=== PATIENT | male | born 1990 | race Caucasian/White ===

== ENCOUNTER 2020-07-08 13:49 | Inpatient (IN) | payer OTHER ==
[2020-07-08] MEDS ORDERED: LORazepam 2 MG/ML INJ IV PRN ×3 (14:08→16:25)
[2020-07-08] MEDS ORDERED: THIAMINE 100 MG/ML 2 ML VIAL IM STA (14:08)
[2020-07-08] MEDS ORDERED: LORazepam 2 MG/ML INJ IV STA (14:09)
--- NOTE | 2020-07-08 14:11 | ED ---
General Adult HPI - General Chief complaint: Chest Pain Stated complaint: Chest pain Time Seen by Provider: 07/08/20 13:54 Source: patient, EMS Mode of arrival: EMS Limitations: no limitations - History of Present Illness Initial comments: Dictation was produced using [employer] dictation software. please excuse any grammatical, word or spelling errors. This patient was cared for during a federal and state declared state of emergency secondary to Covid 19 Chief Complaint: 29-year-old male with squeezing chest pain and withdrawals History of Present Illness: 29-year-old male is brought in by EMS for chest pain. Patient was brought to us from [facility]. Patient states that he was having pressure like chest pain. Patient denies any diaphoresis. States that it does not radiate to shoulders or jaw. Does not have any history of cardiac disease. Patient drinks a fifth of liquor daily for the last month. He has never had withdrawals in the past. Patient does feel very tremulous and anxious. EMS gave patient nitroglycerin and aspirin. Allegedly provided patient with no benefit. The ROS documented in this emergency department record has been reviewed and confirmed by me. Those systems with pertinent positive or negative responses have been documented in the HPI. All other systems are other negative and/or noncontributory. PHYSICAL EXAM: General Impression: Alert and oriented x3, tremulous, anxious, mildly diaphoretic HEENT: Normocephalic atraumatic, extra-ocular movements intact, pupils equal and reactive to light bilaterally, mucous membranes moist. Cardiovascular: Heart regular rate and rhythm Chest: Able to complete full sentences, no retractions, no tachypnea Abdomen: abdomen soft, non-tender, non-distended, no organomegaly Musculoskeletal: Pulses present and equal in all extremities, no peripheral edema Motor: no focal deficits noted Neurological: CN II-XII grossly intact, no focal motor or sensory deficits noted Skin: Intact with no visualized rashes Psych: Anxious ED course: 29-year-old male presents with atypical chest pain and EtOH withdrawals. Vital signs upon arrival shows her to 122 cumbersome vital signs within acceptable limits. EKG does not show any signs of ischemia or infarction. Return evaluation obtained. Mild leukocytosis of 12.5 likely secondary to stress. Coag panel is negative. Metabolic panel shows potassium 5.2 likely slight hemolysis. Rest metabolic panel is negative. Lipase 461, [employer] is 83, troponin is negative. Chest x-ray shows small left pleural effusion. Patient reevaluated at bedside after Ativan with persistent severe withdrawal symptoms. Patient be admitted. Case discussed with [facility]. They will accept patient for inpatient admission. EKG interpretation: Ventricular rate 119, sinus tachycardia, MS interval 152, QRS 82, QTc 433. No MS prolongation, no QTC prolongation, no ST or T-wave changes noted. Overall, this EKG is unremarkable - Related Data Home Medications Medication Instructions Recorded Confirmed No Known Home Medications 07/08/20 07/08/20 Allergies Allergy/AdvReac Type Severity Reaction Status Date / Time No Known Allergies Allergy Verified 07/08/20 14:33 Review of Systems ROS Statement: Those systems with pertinent positive or pertinent negative responses have been documented in the HPI. ROS Other: All systems not noted in ROS Statement are negative. Past Medical History Past Medical History: No Reported History Additional Past Medical History / Comment(s): ETOH abuse History of Any Multi-Drug Resistant Organisms: None Reported Past Surgical History: No Surgical Hx Reported Smoking Status: Current every day smoker Past Alcohol Use History: Abuse, Daily Past Drug Use History: IV Drug Use, Marijuana - Past Family History Mother Family Medical History: Congestive Heart Failure (CHF) General Exam Limitations: no limitations Course Vital Signs 07/08/20 07/08/20 07/08/20 13:54 14:05 16:00 Temperature 98.0 F Pulse Rate 123 H 131 H Pulse Rate [ 123 H [employer] ] Respiratory 18 18 Rate Blood Pressure 151/94 151/139 O2 Sat by Pulse 98 98 Oximetry 07/08/20 07/08/20 17:05 18:05 Temperature Pulse Rate 106 H 113 H Pulse Rate [ [employer] ] Respiratory 18 18 Rate Blood Pressure 161/108 149/98 O2 Sat by Pulse 98 95 Oximetry Medical Decision Making - Lab Data Result diagrams: 07/09/20 09:08 07/09/20 09:08 Lab Results 07/08/20 07/08/20 07/08/20 Range/Units 13:55 13:55 13:55 WBC 12.5 H (3.8-10.6) k/uL RBC 5.16 (4.30-5.90) m/uL Hgb 17.5 (13.0-17.5) gm/dL Hct 49.9 (39.0-53.0) % MCV 96.6 (80.0-100.0) fL MCH 33.8 (25.0-35.0) pg MCHC 35.0 (31.0-37.0) g/dL RDW 13.9 (11.5-15.5) % Plt Count 109 L (150-450) k/uL MPV 7.7 Neutrophils % 80 % Lymphocytes % 14 % Monocytes % 5 % Eosinophils % 0 % Basophils % 0 % Neutrophils # 10.0 H (1.3-7.7) k/uL Lymphocytes # 1.7 (1.0-4.8) k/uL Monocytes # 0.6 (0-1.0) k/uL Eosinophils # 0.0 (0-0.7) k/uL Basophils # 0.1 (0-0.2) k/uL PT 10.1 (9.0-12.0) sec INR 0.9 (<1.2) APTT 23.8 (22.0-30.0) sec Sodium 139 (137-145) mmol/L Potassium 5.2 H (3.5-5.1) mmol/L Chloride 106 (98-107) mmol/L Carbon Dioxide 23 (22-30) mmol/L Anion Gap 10 mmol/L BUN 14 (9-20) mg/dL Creatinine 0.67 (0.66-1.25) mg/dL Est GFR (CKD-EPI)AfAm >90 (>60 ml/min/1.73 sqM) Est GFR (CKD-EPI)NonAf >90 (>60 ml/min/1.73 sqM) Glucose 112 H (74-99) mg/dL Calcium 9.3 (8.4-10.2) mg/dL Troponin I (0.000-0.034) ng/mL Lipase 461 H (23-300) U/L Serum Alcohol 83 mg/dL 07/08/20 Range/Units 13:55 WBC (3.8-10.6) k/uL RBC (4.30-5.90) m/uL Hgb (13.0-17.5) gm/dL Hct (39.0-53.0) % MCV (80.0-100.0) fL MCH (25.0-35.0) pg MCHC (31.0-37.0) g/dL RDW (11.5-15.5) % Plt Count (150-450) k/uL MPV Neutrophils % % Lymphocytes % % Monocytes % % Eosinophils % % Basophils % % Neutrophils # (1.3-7.7) k/uL Lymphocytes # (1.0-4.8) k/uL Monocytes # (0-1.0) k/uL Eosinophils # (0-0.7) k/uL Basophils # (0-0.2) k/uL PT (9.0-12.0) sec INR (<1.2) APTT (22.0-30.0) sec Sodium (137-145) mmol/L Potassium (3.5-5.1) mmol/L Chloride (98-107) mmol/L Carbon Dioxide (22-30) mmol/L Anion Gap mmol/L BUN (9-20) mg/dL Creatinine (0.66-1.25) mg/dL Est GFR (CKD-EPI)AfAm (>60 ml/min/1.73 sqM) Est GFR (CKD-EPI)NonAf (>60 ml/min/1.73 sqM) Glucose (74-99) mg/dL Calcium (8.4-10.2) mg/dL Troponin I <0.012 (0.000-0.034) ng/mL Lipase (23-300) U/L Serum Alcohol mg/dL Disposition Clinical Impression: Alcohol abuse with withdrawal Disposition: ADMITTED IP TO THIS HOSP Decision Time: 14:52
[2020-07-08 14:38] LABS: African American GFR (CKD) >90 (>60 ml/min/1.73 sqM); Anion Gap 10 mmol/L; Blood Urea Nitrogen 14 mg/dL (9-20); Calcium 9.3 mg/dL (8.4-10.2); Carbon Dioxide 23 mmol/L (22-30); Chloride 106 mmol/L (98-107); Glucose 112 mg/dL (74-99); Lipase 461 U/L (23-300); Non-African American GFR(CKD) >90 (>60 ml/min/1.73 sqM); Potassium 5.2 mmol/L (3.5-5.1); Sodium 139 mmol/L (137-145)
[2020-07-08] MEDS ORDERED: SODIUM CHLORIDE 0.9% 1,000 ML IV STA (14:43)
--- NOTE | 2020-07-08 14:44 | XR ---
EXAMINATION TYPE: XR chest 1V portable DATE OF EXAM: 07/08/2020 COMPARISON: NONE HISTORY: Left-sided chest pain and shortness of breath. TECHNIQUE: Single AP portable frontal upright view of the chest is obtained. FINDINGS: There is small left pleural effusion. No suspicious focal airspace opacity or pneumothorax seen bilaterally. The cardiac silhouette size is within normal limits. The osseous structures are intact. IMPRESSION: Small left pleural effusion.
[2020-07-08 14:45] LABS: Alcohol 83 mg/dL
[2020-07-08 14:48] LABS: Basophils # (A) 0.1 k/uL (0-0.2); Basophils % (A) 0 %; Eosinophils % (A) 0 %; HCT 49.9 % (39.0-53.0); HGB 17.5 gm/dL (13.0-17.5); Lymphocytes # (A) 1.7 k/uL (1.0-4.8); Lymphocytes % (A) 14 %; MCH 33.8 pg (25.0-35.0); MCV 96.6 fL (80.0-100.0); Mean Platelet Volume 7.7; Monocytes # (A) 0.6 k/uL (0-1.0); Monocytes % (A) 5 %; Neutrophils % (A) 80 %; Platelet Count 109 k/uL (150-450); RBC 5.16 m/uL (4.30-5.90); RDW 13.9 % (11.5-15.5); WBC 12.5 k/uL (3.8-10.6)
[2020-07-08] MEDS ORDERED: NALOXONE 0.4 MG/ML 1 ML VIAL IV PRN ×2 (14:53→16:18)
[2020-07-08] MEDS ORDERED: LORazepam 1 MG TAB PO STA (15:08)
[2020-07-08 15:09] LABS: INR 0.9 (<1.2); Partial Thromboplastin Time 23.8 sec (22.0-30.0); Prothrombin Time 10.1 sec (9.0-12.0)
--- NOTE | 2020-07-08 16:37 | P.HPIM ---
<Ac Fan - Last Filed: 07/08/20 16:44> History of Present Illness H&P Date: 07/08/20 Chief Complaint: chest pain and alcohol withdrawal History of presenting illness Patient is a 29-year-old male with a past medical history of polysubstance abuse with IVDA and EtOH use/abuse. He presented to [facility] via EMS from [facility] with the chief complaint of chest pain and alcohol withdrawal. Pt states that he has been drinking daily since November 2019 and that for the past 4-5 weeks he has been drinking at least a fifth of liquor daily. Pt states that his last drink was yesterday afternoon. Pt denies hx of alcohol withdrawal, but states that this is the first time he has ever went a day without drinking since October and that he never had a drinking problem prior to then. Pt states history of IVDA with Heroin, but reports that he stopped shooting up in August 2018. Pt states that he went to [facility] facility today for assistance with withdrawal. Patient reports feeling very anxious diaphoresis and tremors. Patient states he began having chest pain to left anterior chest that he describes as sharp and stabbing-like. Patient reports this pain remains directly and left anterior chest and does not radiate to his back, neck, or shoulder. He denies having any accompanying headache, lightheadedness, dizziness, changes in vision or hearing, palpitations, shortness of breath, cough or congestion, abdominal pain, nausea, vomiting, visual/auditory/tactile hallucinations, or any other complaints at this time. Pt reports chest pain remains and has been unresolved by nitro. ED course:: Patient was seen and fully evaluated in the emergency department with admitting diagnosis EtOH withdraw resulting in admission to general medical unit with telemetry where he'll receive continuous close medical management. Labs: CBC revealing leukocytosis with WBC count 12.5 along with thrombocytopenia with platelet count of 109. BNP revealing hyperkalemia with potassium of 5.2. Lipase elevated at 461. EtOH 83. Coags normal findings. Troponin normal findings at less than 0.012. Chest x-ray revealing a small left pleural effusion. No suspicious focal airspace opacity or pneumothorax seen bilaterally. The cardiac silhouette size is within normal limits. The osseous structures are intact. EKG revealing sinus tachycardia 119 bpm with no T-wave abnormalities and no ST elevation or depression noted. The patient is admitted with an anticipated greater than 2 midnight stay for evaluation of alcohol withdrawal. CODE STATUS: Full code DVT prophylaxis: SCDs Discussed with: Patient and his father at bedside Anticipated discharge date: 2-[address] A total of 45 minutes was spent on the care of this complex patient more than 50% of the time was spent in counseling and care coordination. Review of Systems Review of systems: Pertinent positives and negatives as discussed in HPI, a complete review of systems was performed and all other systems are negative. Past Medical History Past Medical History: No Reported History Additional Past Medical History / Comment(s): ETOH abuse. Polysubstance abuse with IVDA, stopped August 2018 History of Any Multi-Drug Resistant Organisms: None Reported Past Surgical History: No Surgical Hx Reported Smoking Status: Current every day smoker Past Alcohol Use History: Abuse, Daily Past Drug Use History: IV Drug Use, Marijuana Medications and Allergies Home Medications Medication Instructions Recorded Confirmed Type No Known Home Medications 07/08/20 07/08/20 History Allergies Allergy/AdvReac Type Severity Reaction Status Date / Time No Known Allergies Allergy Verified 07/08/20 14:33 Physical Exam Vitals: Vital Signs Temp Pulse Pulse Resp BP Pulse Ox 07/08/20 14:05 123 H 07/08/20 13:54 98.0 F 123 H 18 151/94 98 Intake and Output 07/08/20 07/08/20 07/08/20 06:59 14:59 22:59 Other: Weight 90.718 kg Physical examination: General: Patient awake and alert and oriented 4. Disheveled appearance. Diaphoretic. Patient revealing mild distress secondary to significant tremors. Derm: skin warm and moderately diaphoretic Head: atraumatic, normocephalic, symmetric Eyes: EOMI, no lid lag, anicteric sclera Mouth: no lip lesion, mucus membranes moist, teeth with poor dentition. Cardiovascular: S1S2 normal, no murmur, positive posterior tibial pulse bilaterally, tachycardic rate with regular rhythm. Lungs: CTA bilateral, no rhonchi, no rales, no wheezing, and no accessory muscle use Abdominal: soft, nontender to palpation, no guarding, no appreciable organomegally Ext: no gross muscle atrophy, no edema, no contractures Neuro: CN II-XII grossly intact, no focal neuro deficits Psych: Alert, oriented, very anxious Results CBC & Chem 7: 07/08/20 13:55 07/08/20 13:55 Labs: Abnormal Lab Results - Last 24 Hours (Table) 07/08/20 07/08/20 Range/Units 13:55 13:55 WBC 12.5 H (3.8-10.6) k/uL Plt Count 109 L (150-450) k/uL Neutrophils # 10.0 H (1.3-7.7) k/uL Potassium 5.2 H (3.5-5.1) mmol/L Glucose 112 H (74-99) mg/dL Lipase 461 H (23-300) U/L Assessment and Plan Plan: Plan of care: Acute alcohol withdrawal with delirium tremens: -Patient with an 8 month history of daily EtOH use/abuse reportedly progressivel y increasing increasing amount of alcohol daily and states that over the last 4- 5 weeks he has been drinking at least one fifth of liquor daily. Patient reports that his last drink was yesterday afternoon. -EtOH 83 -[facility] protocol symptom triggered medication management with Ativan -Seizure precautions, fall precautions, and aspiration precautions in place. -Folic acid and B12 supplements daily, we will hold off on daily multivitamin secondary to hyperkalemia with potassium of 5.2. -Ativan 1-2 mg IVP as needed for seizure activity. Atypical Chest pain with anxiety -Patient denies cardiac history or family history of sudden cardiac . -Troponin less than 0.012. -EKG revealing sinus tachycardia at 119 bpm with no T-wave abnormalities and no ST elevation or depression noted. -Patient to be admitted with continuous cardiac monitoring. -Trend troponins every 3 hours 2. -Chest pain unrelieved by nitro and likely secondary to anxiety and withdraws and less likely secondary to cardiac etiology. Thrombocytopenia: -Thrombocytopenia as evidenced by a platelet count of 109. -Thrombocytopenia likely secondary to chronic and excessive EtOH use/abuse. -We will continue to monitor closely with repeat a.m. labs and obtain a liver profile as well. Hyperkalemia -Hyperkalemia with potassium of 5.2. -EKG revealing sinus tachycardia at 119 bpm with no T-wave abnormalities and no ST elevation or depression noted. -Telemetry monitoring. -Continued close monitoring with repeat a.m. labs. <Jazmín Erwin - Last Filed: 07/08/20 16:48> Physical Exam Osteopathic Statement: *. No significant issues noted on an osteopathic structural exam other than those noted in the History and Physical/Consult. Vitals: Vital Signs Temp Pulse Pulse Resp BP Pulse Ox 07/08/20 16:00 131 H 18 151/139 98 07/08/20 14:05 123 H 07/08/20 13:54 98.0 F 123 H 18 151/94 98 Intake and Output 07/08/20 07/08/20 07/08/20 06:59 14:59 22:59 Other: Weight 90.718 kg Results CBC & Chem 7: 07/08/20 13:55 07/08/20 13:55 Labs: Abnormal Lab Results - Last 24 Hours (Table) 07/08/20 07/08/20 Range/Units 13:55 13:55 WBC 12.5 H (3.8-10.6) k/uL Plt Count 109 L (150-450) k/uL Neutrophils # 10.0 H (1.3-7.7) k/uL Potassium 5.2 H (3.5-5.1) mmol/L Glucose 112 H (74-99) mg/dL Lipase 461 H (23-300) U/L Assessment and Plan Assessment: Patient seen and examined independently. Patient was also seen by Ac Fan NP and case was discussed. I am in agreement with subjective, physical exam, assessment and plan as written above and amended below. General examination - Alert and Oriented 3 , anxious Heart - + S1S2 no murmurs Lungs - Clear to auscultation Abdomen soft NT ND +ve BS Extremities - No edema [employer] - Moving all 4 extremities spontaneously Psych - anxious and diaphoretic
[2020-07-08] MEDS: ONDANSETRON 4 MG/2 ML VIAL IVP PRN (17:02)
[2020-07-08] MEDS: SODIUM CHLORIDE 0.9% 1,000 ML IV SCH (17:02)
[2020-07-08] MEDS: LORazepam 2 MG/ML INJ IV PRN ×2 (17:24→22:13)
[2020-07-08] MEDS ORDERED: NICOTINE 14MG/24HR PATCH TRANSDERM STA (22:28)
[2020-07-09] MEDS: LORazepam 2 MG/ML INJ IV PRN ×6 (03:16→23:12)
[2020-07-09] MEDS: SODIUM CHLORIDE 0.9% 1,000 ML IV SCH ×3 (03:16→21:19)
[2020-07-09] MEDS: THIAMINE 100 MG TAB PO SCH ×2 (06:44→16:27)
[2020-07-09] MEDS: ONDANSETRON 4 MG/2 ML VIAL IVP PRN (08:36)
[2020-07-09 10:11] LABS: ALT 40 U/L (4-49); AST 81 U/L (17-59); African American GFR (CKD) >90 (>60 ml/min/1.73 sqM); Albumin 3.7 g/dL (3.5-5.0); Alkaline Phosphatase 85 U/L (38-126); Anion Gap 4 mmol/L; Blood Urea Nitrogen 12 mg/dL (9-20); Calcium 8.8 mg/dL (8.4-10.2); Carbon Dioxide 26 mmol/L (22-30); Chloride 108 mmol/L (98-107); Glucose 83 mg/dL (74-99); Magnesium 1.7 mg/dL (1.6-2.3); Non-African American GFR(CKD) >90 (>60 ml/min/1.73 sqM); Potassium 3.6 mmol/L (3.5-5.1); Sodium 138 mmol/L (137-145); Total Bilirubin 1.6 mg/dL (0.2-1.3); Total Protein 6.7 g/dL (6.3-8.2)
[2020-07-09 10:18] LABS: Basophils % (A) 0 %; Eosinophils # (A) 0.1 k/uL (0-0.7); Eosinophils % (A) 1 %; HCT 44.6 % (39.0-53.0); Lymphocytes # (A) 1.6 k/uL (1.0-4.8); Lymphocytes % (A) 25 %; MCHC 32.2 g/dL (31.0-37.0); MCV 99.3 fL (80.0-100.0); Macrocytosis Slight; Mean Platelet Volume 8.4; Monocytes # (A) 0.3 k/uL (0-1.0); Monocytes % (A) 5 %; Neutrophils # (A) 4.5 k/uL (1.3-7.7); Neutrophils % (A) 68 %; RBC 4.49 m/uL (4.30-5.90); RDW 14.4 % (11.5-15.5); WBC 6.6 k/uL (3.8-10.6)
--- NOTE | 2020-07-09 10:21 | P.PN ---
<Ac Fan - Last Filed: 07/09/20 14:01> Subjective Progress Note Date: 07/09/20 Chief Complaint: chest pain and alcohol withdrawal History of presenting illness Patient is a 29-year-old male with a past medical history of polysubstance abuse with IVDA and EtOH use/abuse. He presented to [facility] via EMS from [facility] with the chief complaint of chest pain and alcohol withdrawal. Pt states that he has been drinking daily since November 2019 and that for the past 4-5 weeks he has been drinking at least a fifth of liquor daily. Pt states that his last drink was yesterday afternoon. Pt denies hx of alcohol withdrawal, but states that this is the first time he has ever went a day without drinking since October and that he never had a drinking problem prior to then. Pt states history of IVDA with Heroin, but reports that he stopped shooting up in August 2018. Pt states that he went to [facility] facility today for assistance with withdrawal. Patient reports feeling very anxious diaphoresis and tremors. Patient states he began having chest pain to left anterior chest that he describes as sharp and stabbing-like. Patient reports this pain remains directly and left anterior chest and does not radiate to his back, neck, or shoulder. He denies having any accompanying headache, lightheadedness, dizziness, changes in vision or hearing, palpitations, shortness of breath, cough or congestion, abdominal pain, nausea, vomiting, visual/auditory/tactile hallucinations, or any other complaints at this time. Pt reports chest pain remains and has been unresolved by nitro. 07/08/20: Patient was seen and fully evaluated in the emergency department with admitting diagnosis EtOH withdraw resulting in admission to general medical unit with telemetry where he'll receive continuous close medical management. Labs: CBC revealing leukocytosis with WBC count 12.5 along with thrombocytopenia with platelet count of 109. BNP revealing hyperkalemia with potassium of 5.2. Lipase elevated at 461. EtOH 83. Coags normal findings. Troponin normal findings at less than 0.012. Chest x-ray revealing a small left pleural effusion. No suspicious focal airspace opacity or pneumothorax seen bilaterally. The cardiac silhouette size is within normal limits. The osseous structures are intact. EKG revealing sinus tachycardia 119 bpm with no T-wave abnormalities and no ST elevation or depression noted. 07/09/20: Patient was seen and fully evaluated at the bedside. Patient's generalized appearance significantly improved since yesterday, patient was very diaphoretic and moderately tremulous upon admission and he is now sitting up in bed awake and alert to person place time and situation only mild tenderness remaining and no diaphoresis. Patient has received a total of 6 mg Ativan since admission. Patient reports he continues to mild chest pain to left anterior c hest reports significantly improved since yesterday. Patient denies having any headache, lightheadedness, dizziness, diaphoresis, chills, changes in his vision or hearing, palpitations, shortness of breath, abdominal pain, nausea, vomiting, or having any numbness/tingling/weakness in extremities. CBC unremarkable this morning with improvement of leukocytosis with WBC count decreasing from previous 12.5 down to 6.6. BMP reveals hyperkalemia resolved from previous 5.2 now 3.6. Patient did have elevation in total bili 1.6 as well as elevated AST of 81, liver profile otherwise unremarkable. Troponins continued to be negative 4. Echocardiogram was ordered based upon patient's continued reports of chest pain and history of IVDA, echocardiogram revealed an EF of 60-65% with moderate concentric left ventricular hypertrophy, a trileaflet aortic valve, and trace tricuspid regurgitation with trace to mild pulmonic regurgitation. No pericardial effusion. Cardiology was consulted due to patient's persistent chest pain and findings of LVH. CIWA protocol to remain in place with symptom trig gered medication management with Ativan. Seizure/aspiration/fall precautions remain in place. Plan for discharge to [facility] in 1-2 days pending detox process. Objective - Vital Signs Vital signs: Vital Signs Temp 98.1 F 07/09/20 08:25 Pulse 111 H 07/09/20 08:25 Resp 20 07/09/20 08:25 BP 152/92 07/09/20 08:25 Pulse Ox 98 07/09/20 08:25 Intake & Output 07/08/20 07/09/20 07/09/20 18:59 06:59 18:59 Intake Total 1180 Balance 1180 Weight 90.718 kg 87.4 kg Intake: Intake, IV Titration 880 Amount Sodium Chloride 0.9% 1, 880 000 ml @ 999 mls/hr IV . Q1H1M STA Rx#:[id number] Oral 300 Other: Voiding Method Urinal Toilet Urinal - Exam Physical examination: General: Patient awake and alert and oriented 4. Mild tremors noted. Derm: skin warm and dry normal coloration for ethnicity. Head: atraumatic, normocephalic, symmetric Eyes: EOMI, no lid lag, anicteric sclera Mouth: no lip lesion, mucus membranes moist, teeth with poor dentition. Cardiovascular: S1S2 normal, no murmur, positive posterior tibial pulse bilaterally, regular rate and rhythm. Lungs: CTA bilateral, no rhonchi, no rales, no wheezing, and no accessory muscle use Abdominal: soft, nontender to palpation, no guarding, no appreciable organomegally Ext: no gross muscle atrophy, no edema, no contractures Neuro: CN II-XII grossly intact, no focal neuro deficits, tremors present. Psych: Alert, oriented, and appropriate to situation. - Labs CBC & Chem 7: 07/09/20 09:08 07/09/20 09:08 Labs: Abnormal Lab Results - Last 24 Hours (Table) 07/08/20 07/08/20 07/09/20 Range/Units 13:55 13:55 09:08 WBC 12.5 H (3.8-10.6) k/uL Plt Count 109 L (150-450) k/uL Neutrophils # 10.0 H (1.3-7.7) k/uL Potassium 5.2 H (3.5-5.1) mmol/L Chloride 108 H (98-107) mmol/L Glucose 112 H (74-99) mg/dL Total Bilirubin 1.6 H (0.2-1.3) mg/dL AST 81 H (17-59) U/L Lipase 461 H (23-300) U/L Assessment and Plan Plan: Plan of care: Acute alcohol withdrawal with delirium tremens: -Patient with an 8 month history of daily EtOH use/abuse reportedly progressively increasing increasing amount of alcohol daily and states that over the last 4-5 weeks he has been drinking at least one fifth of liquor daily. Patient reports that his last drink was yesterday afternoon. -EtOH 83 upon arrival on 07/08/20 -WA protocol in place with symptom triggered medication management with Ativan. Pt received 6 mg over the past 24 hours. -Seizure precautions, fall precautions, and aspiration precautions to remain in place. -Thiamine supplements daily -Ativan 1-2 mg IVP as needed for seizure activity. Atypical Chest pain with anxiety -Patient continues to have mild chest pain to left anterior chest that he describes today as sharp and pressure like. He denies cardiac history or family history of sudden cardiac . -Troponins negative 4. -Echocardiogram revealed an EF of 60-65% with moderate concentric left ventricular hypertrophy, a trileaflet aortic valve, and trace tricuspid regurgitation with trace to mild pulmonic regurgitation. No pericardial effusio n. -EKG revealing sinus tachycardia at 119 bpm with no T-wave abnormalities and no ST elevation or depression noted. -Patient to be admitted with continuous cardiac monitoring. -Chest pain unrelieved by nitro and likely secondary to anxiety and withdraws and less likely secondary to cardiac etiology, however secondary to persistent left-sided chest pain and echocardiogram findings of LVH cardiology consult was placed. Thrombocytopenia: -Thrombocytopenia as evidenced by an initial platelet count of 109 with repeat platelet count of 76. -Thrombocytopenia likely secondary to direct toxic effect of alcohol vs chronic and excessive EtOH use/abuse vs folate deficiency vs Spleenomegally (which was not evident on physical exam) -We will continue to monitor closely with repeat a.m. labs and obtain a folate level as well. Hyperkalemia, resolved. -Hyperkalemia with potassium of 5.2 upon arrival, now 3.6. -EKG revealing sinus tachycardia at 119 bpm with no T-wave abnormalities and no ST elevation or depression noted. -Telemetry monitoring. -Continued close monitoring with repeat a.m. labs. CODE STATUS: Full code DVT prophylaxis: SCDs Discussed with: Patient Anticipated discharge: 1-[address]: [facility] A total of 35 minutes was spent on the care of this complex patient more than 50% of the time was spent in counseling and care coordination. <Jazmín Erwin - Last Filed: 07/09/20 14:16> Objective - Vital Signs Vital signs: Vital Signs Temp 98.0 F 07/09/20 12:00 Pulse 90 07/09/20 14:00 Resp 18 07/09/20 14:00 BP 166/90 07/09/20 12:00 Pulse Ox 96 07/09/20 12:00 Intake & Output 07/08/20 07/09/20 07/09/20 18:59 06:59 18:59 Intake Total 1180 Balance 1180 Weight 90.718 kg 87.4 kg 87.4 kg Intake: Intake, IV Titration 880 Amount Sodium Chloride 0.9% 1, 880 000 ml @ 999 mls/hr IV . Q1H1M STA Rx#:[id number] Oral 300 Other: Voiding Method Urinal Toilet Urinal # Voids 3 - Labs CBC & Chem 7: 07/09/20 09:08 07/09/20 09:08 Labs: Abnormal Lab Results - Last 24 Hours (Table) 07/08/20 07/08/20 07/09/20 Range/Units 13:55 13:55 09:08 WBC 12.5 H (3.8-10.6) k/uL Plt Count 109 L 76 L (150-450) k/uL Neutrophils # 10.0 H (1.3-7.7) k/uL Potassium 5.2 H (3.5-5.1) mmol/L Chloride (98-107) mmol/L Glucose 112 H (74-99) mg/dL Total Bilirubin (0.2-1.3) mg/dL AST (17-59) U/L Lipase 461 H (23-300) U/L 07/09/20 Range/Units 09:08 WBC (3.8-10.6) k/uL Plt Count (150-450) k/uL Neutrophils # (1.3-7.7) k/uL Potassium (3.5-5.1) mmol/L Chloride 108 H (98-107) mmol/L Glucose (74-99) mg/dL Total Bilirubin 1.6 H (0.2-1.3) mg/dL AST 81 H (17-59) U/L Lipase (23-300) U/L Assessment and Plan Assessment: Patient seen and examined independently. Patient was also seen by Ac Fan NP and case was discussed. I am in agreement with subjective, physical exam, assessment and plan as written above and amended below. 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
[2020-07-09 10:30] LABS: HGB 14.4 gm/dL (13.0-17.5)
[2020-07-09 10:40] VITALS: BMI 28.4
[2020-07-09 10:47] LABS: Platelet Count 76 k/uL (150-450)
--- NOTE | 2020-07-09 11:54 | ECHOF ---
Referral Reason:chest pain and shortness of breath, hx of IVDA MEASUREMENTS -------- HEIGHT: 175.3 cm WEIGHT: 88.5 kg BP: 152/92 RVIDd: 3.1 cm (< 3.3) IVSd: 1.5 cm (0.6 - 1.1) LVIDd: 3.9 cm (3.9 - 5.3) LVPWd: 1.5 cm (0.6 - 1.1) IVSs: 1.8 cm LVIDs: 2.6 cm LVPWs: 1.8 cm LA Diam: 3.8 cm (2.7 - 3.8) LAESV Index (A-L): 28.01 ml/m Ao Diam: 3.3 cm (2.0 - 3.7) AV Cusp: 2.3 cm (1.5 - 2.6) MV EXCURSION: 15.640 mm (> 18.000) MV EF SLOPE: 118 mm/s (70 - 150) EPSS: 0.3 cm MV E Isrrael: 1.14 m/s MV DecT: 194 ms MV A Isrrael: 0.85 m/s MV E/A Ratio: 1.33 RAP: 5.00 mmHg RVSP: 21.16 mmHg FINDINGS -------- Sinus rhythm. This was a technically good study. The left ventricular size is normal. There is moderate concentric left ventricular hypertrophy. O verall left ventricular systolic function is normal with, an EF between 60 - 65 %. The right ventricle is normal in size. Normal LA size by volume 22+/-6 ml/m2. The right atrium is normal in size. Interatrial and interventricular septum intact. The aortic valve is trileaflet and appears structurally normal. The mitral valve is normal. Trace tricuspid regurgitation present. Trace/mild (physiologic) pulmonic regurgitation. The aortic root size is normal. Normal inferior vena cava with normal inspiratory collapse consistent with estimated right atrial pre ssure of 5 mmHg. There is no pericardial effusion. CONCLUSIONS -------- 1. The left ventricular size is normal. 2. There is moderate concentric left ventricular hypertrophy. 3. Overall left ventricular systolic function is normal with, an EF between 60 - 65 %. 4. The aortic valve is trileaflet and appears structurally normal. 5. Trace tricuspid regurgitation present. 6. Trace/mild (physiologic) pulmonic regurgitation. 7. There is no pericardial effusion. TELECOM COORDINATOR: PRETTY Jefferson
--- NOTE | 2020-07-09 14:20 | P.CRDCN ---
History of Present Illness History of present illness: HISTORY OF PRESENTING ILLNESS This is a pleasant 29-year-old male past medical history significant for IV drug abuse last used heroin August 2018, chronic daily nicotine dependence, heavy alcohol use and marijuana use. He denies prior history of coronary artery disease and does not follow in the office with a cardiac cath lab radiology technologist for any reason. We have been asked to see in consultation for chest pain. He states for the last 6 months he has been drinking heavily. He was at [facility] attempting to check himself into rehab and was sent to the hospital for alcohol withdrawal and hypertension. He has been receiving IV ativan regularly and complaining of feeling abdominal pain, nausea, generalized shakiness and jitters and chest pain. He states the pain in a burning sensation in the mid- sternal region. He states he has been diagnosed in the past with a bleeding ulcer 5ish years ago that has been stable up until 2 months ago when he started noticing black loose stools. Echocardiogram obtained on this admission reveals preserved LV systolic function with EF 60-65%. DIAGNOSTICS EKG reveals sins tachycardia heart rate [address] or T-wave changes. Telemetry tracings indicate sinus mechanism with acute arrhythmia noted. Chest xray reveals a small left pleural effusion. Laboratory reviewed, WBC 6.6, hgb 14.4, plt 76, sodium 138, potassium 3.6, creatinine 0.69, cardiac enzymes negative x4, lipase 461 and alcohol level 83 on admission. He takes no daily cardiac medications. REVIEW OF SYSTEMS At the time of my exam: CONSTITUTIONAL: Denies fever or chills. Complains of generalized shaking. CARDIOVASCULAR: Denies chest pain, shortness of breath, orthopnea, PND or palpitations. RESPIRATORY: Denies cough. GASTROINTESTINAL: Complains of abdominal pain and nausea. Denies diarrhea, constipation or vomiting. MUSCULOSKELETAL: Denies myalgias. NEUROLOGIC: Denies numbness, tingling, headacbe or weakness. ENDOCRINE: Denies fatigue, weight change, polydipsia or polyurina. GENITOURINARY: Denies burning, hematuria or urgency with micturation. HEMATOLOGIC: Denies history of anemia or bleeding. PHYSICAL EXAMINATION Blood pressure 166/90 heart rate 90 afebrile and maintaining oxygen saturation on room air. CONSTITUTIONAL: No apparent distress. HEENT: Head is normocephalic. Pupils are equal, round. Sclerae anicteric. Mucous membranes of the mouth are moist. No JVD. No carotid bruit. CHEST EXAMINATION: Lungs are clear to auscultation. No chest wall tenderness is noted on palpation or with deep breathing. HEART EXAMINATION: Regular rate and rhythm. S1, S2 heard. No murmurs, gallops or rub. ABDOMEN: Soft, nontender. Positive bowel sounds. EXTREMITIES: 2+ peripheral pulses, no lower extremity edema and no calf tenderness. NEUROLOGIC EXAMINATION: Patient is awake, alert and oriented x3. ASSESSMENT Chest pain, atypical for angina. Acute alcohol withdrawal Thrombocytopenia Daily alcohol abuse History of IV drug use History of ulcer Chronic nicotine dependence PLAN An acute coronary event has been ruled out. Pain is atypical to be related to cardiac etiology, likely secondary to acute alcohol withdrawal. No further cardiac work-up required at this time. Clinically stable from a cardiac perspective. Discussed the importance of ongoing IV drug cessation along with alcohol and nicotine cessation. Thank you kindly for this consultation. Nurse Practitioner note has been reviewed, I agree with a documented findings and plan of care. Patient was seen and examined. Past Medical History Past Medical History: No Reported History Additional Past Medical History / Comment(s): ETOH abuse. Polysubstance abuse with IVDA, stopped August 2018 History of Any Multi-Drug Resistant Organisms: None Reported Past Surgical History: No Surgical Hx Reported Past Anesthesia/Blood Transfusion Reactions: No Reported Reaction Smoking Status: Current every day smoker Past Alcohol Use History: Abuse, Daily Past Drug Use History: IV Drug Use, Marijuana - Past Family History Mother Family Medical History: Congestive Heart Failure (CHF) Medications and Allergies Home Medications Medication Instructions Recorded Confirmed Type No Known Home Medications 07/08/20 07/08/20 History Allergies Allergy/AdvReac Type Severity Reaction Status Date / Time No Known Allergies Allergy Verified 07/08/20 14:33 Physical Exam Vitals: Vital Signs Temp Pulse Pulse Resp BP BP Pulse Ox 07/09/20 12:00 98.0 F 90 18 166/90 96 07/09/20 08:25 98.1 F 111 H 20 152/92 98 07/09/20 08:00 111 H 20 07/09/20 03:53 98.9 F 111 H 18 156/86 96 07/09/20 00:00 98.6 F 105 H 20 139/90 96 07/08/20 20:13 98.7 F 109 H 18 146/73 96 07/08/20 20:10 109 H 07/08/20 18:05 113 H 18 149/98 95 07/08/20 17:05 106 H 18 161/108 98 07/08/20 16:00 131 H 18 151/139 98 07/08/20 14:05 123 H Intake and Output 07/08/20 07/09/20 07/09/20 22:59 06:59 14:59 Intake Total 300 880 Balance 300 880 Intake: Intake, IV Titration 880 Amount Sodium Chloride 0.9% 1, 880 000 ml @ 999 mls/hr IV . Q1H1M STA Rx#:[id number] Oral 300 Other: Voiding Method Urinal Toilet Urinal # Voids 3 Weight 90.718 kg 87.4 kg 87.4 kg Results 07/09/20 09:08 07/09/20 09:08 Cardiac Enzymes 07/08/20 07/08/20 07/08/20 Range/Units 13:55 20:21 22:35 AST (17-59) U/L Troponin I <0.012 <0.012 0.022 (0.000-0.034) ng/mL 07/09/20 07/09/20 Range/Units 09:08 09:08 AST 81 H (17-59) U/L Troponin I <0.012 (0.000-0.034) ng/mL Coagulation 07/08/20 Range/Units 13:55 PT 10.1 (9.0-12.0) sec APTT 23.8 (22.0-30.0) sec CBC 07/08/20 07/09/20 Range/Units 13:55 09:08 WBC 12.5 H 6.6 (3.8-10.6) k/uL RBC 5.16 4.49 (4.30-5.90) m/uL Hgb 17.5 14.4 D (13.0-17.5) gm/dL Hct 49.9 44.6 (39.0-53.0) % Plt Count 109 L 76 L (150-450) k/uL Comprehensive Metabolic Panel 07/08/20 07/09/20 Range/Units 13:55 09:08 Sodium 139 138 (137-145) mmol/L Potassium 5.2 H 3.6 (3.5-5.1) mmol/L Chloride 106 108 H (98-107) mmol/L Carbon Dioxide 23 26 (22-30) mmol/L BUN 14 12 (9-20) mg/dL Creatinine 0.67 0.69 (0.66-1.25) mg/dL Glucose 112 H 83 (74-99) mg/dL Calcium 9.3 8.8 (8.4-10.2) mg/dL AST 81 H (17-59) U/L ALT 40 (4-49) U/L Alkaline Phosphatase 85 (38-126) U/L Total Protein 6.7 (6.3-8.2) g/dL Albumin 3.7 (3.5-5.0) g/dL Current Medications Generic Name Dose Route Start Last Admin Trade Name Freq PRN Reason Stop Dose Admin Sodium Chloride 1,000 mls @ 110 mls/hr 07/08/20 15:00 07/09/20 12:29 Saline 0.9% IV Not Given .Q9H6M [facility] Lorazepam 1 mg 07/08/20 14:08 07/09/20 12:27 Lorazepam 2 Mg/Ml Inj IV 1 mg Q2HR PRN Administration CIWA 8 or 9 Lorazepam 1 mg 07/08/20 14:08 07/09/20 03:16 Lorazepam 2 Mg/Ml Inj IV 1 mg Q1HR PRN Administration CIWA 10 to 15 Lorazepam 2 mg 07/08/20 14:08 07/08/20 16:44 Lorazepam 2 Mg/Ml Inj IV 07/10/20 14:08 2 mg Q10M PRN Administration CIWA 16 or higher Lorazepam 2 mg 07/08/20 16:25 Lorazepam 2 Mg/Ml Inj IV ONCE PRN Seizures Naloxone HCl 0.2 mg 07/08/20 16:18 Naloxone 0.4 Mg/Ml 1 Ml Vial IV Q2M PRN Opioid Reversal Ondansetron HCl 4 mg 07/08/20 16:18 07/09/20 08:36 Ondansetron 4 Mg/2 Ml Vial IVP 4 mg Q8HR PRN Administration Nausea And Vomiting Thiamine HCl 100 mg 07/09/20 07:30 07/09/20 06:44 Thiamine 100 Mg Tab PO 100 mg BID-W/MEALS RUDDY Administration Intake and Output 07/08/20 07/09/20 07/09/20 22:59 06:59 14:59 Intake Total 300 880 Balance 300 880 Intake: Intake, IV Titration 880 Amount Sodium Chloride 0.9% 1, 880 000 ml @ 999 mls/hr IV . Q1H1M STA Rx#:[id number] Oral 300 Other: Voiding Method Urinal Toilet Urinal # Voids 3 Weight 90.718 kg 87.4 kg 87.4 kg Patient Weight 07/10/20 06:59 Weight 87.4 kg 07/09/20 09:08 07/09/20 09:08
[2020-07-10] MEDS: LORazepam 2 MG/ML INJ IV PRN ×7 (01:43→23:38)
[2020-07-10] MEDS: SODIUM CHLORIDE 0.9% 1,000 ML IV SCH ×3 (03:34→23:48)
[2020-07-10 06:57] LABS: Basophils % (A) 1 %; Eosinophils # (A) 0.1 k/uL (0-0.7); Eosinophils % (A) 2 %; HCT 43.8 % (39.0-53.0); HGB 15.4 gm/dL (13.0-17.5); Lymphocytes # (A) 1.7 k/uL (1.0-4.8); Lymphocytes % (A) 26 %; MCH 34.1 pg (25.0-35.0); MCHC 35.1 g/dL (31.0-37.0); Mean Platelet Volume 8.4; Monocytes # (A) 0.3 k/uL (0-1.0); Monocytes % (A) 5 %; Neutrophils # (A) 4.2 k/uL (1.3-7.7); Neutrophils % (A) 65 %; RBC 4.51 m/uL (4.30-5.90); RDW 13.6 % (11.5-15.5); WBC 6.5 k/uL (3.8-10.6)
[2020-07-10 07:18] LABS: Platelet Count 77 k/uL (150-450)
[2020-07-10] MEDS: THIAMINE 100 MG TAB PO SCH ×2 (10:47→17:03)
[2020-07-10 11:03] LABS: African American GFR (CKD) 147.8 (60.0-200.0); Anion Gap 9.5 mmol/L (4.00-12.00); BUN/Creat Ratio 14.29 Ratio (12.00-20.00); Calcium 9.4 mg/dL (8.7-10.3); Carbon Dioxide 25.5 mmol/L (21.6-31.8); Magnesium 1.8 mg/dL (1.5-2.4); Non-African American GFR(CKD) 127.5 (60.0-200.0); Potassium 3.7 mmol/L (3.5-5.5)
[2020-07-10 11:11] LABS: Folate, Serum 8.3 ng/mL
[2020-07-10] MEDS: NICOTINE 14MG/24HR PATCH TRANSDERM SCH (14:21)
--- NOTE | 2020-07-10 14:21 | P.PN ---
<Ac Fan - Last Filed: 07/10/20 15:48> Subjective Progress Note Date: 07/10/20 Principal diagnosis: Alcohol withdrawal Chief Complaint: chest pain and alcohol withdrawal History of presenting illness Patient is a 29-year-old male with a past medical history of polysubstance abuse with IVDA and EtOH use/abuse. He presented to [facility] via EMS from [facility] with the chief complaint of chest pain and alcohol withdrawal. Pt states that he has been drinking daily since November 2019 and that for the past 4-5 weeks he has been drinking at least a fifth of liquor daily. Pt states that his last drink was yesterday afternoon. Pt denies hx of alcohol withdrawal, but states that this is the first time he has ever went a day without drinking since October and that he never had a drinking problem prior to then. Pt states history of IVDA with Heroin, but reports that he stopped shooting up in August 2018. Pt states that he went to [facility] facility today for assistance with withdrawal. Patient reports feeling very anxious diaphoresis and tremors. Patient states he began having chest pain to left anterior chest that he describes as sharp and stabbing-like. Patient reports this pain remains directly and left anterior chest and does not radiate to his back, neck, or shoulder. He denies having any accompanying headache, lightheadedness, dizziness, changes in vision or hearing, palpitations, shortness of breath, co ugh or congestion, abdominal pain, nausea, vomiting, visual/auditory/tactile hallucinations, or any other complaints at this time. Pt reports chest pain remains and has been unresolved by nitro. 07/08/20: Patient was seen and fully evaluated in the emergency department with admitting diagnosis EtOH withdraw resulting in admission to general medical unit with telemetry where he'll receive continuous close medical management. Labs: CBC revealing leukocytosis with WBC count 12.5 along with thrombocytopenia with platelet count of 109. BNP revealing hyperkalemia with potassium of 5.2. Lipase elevated at 461. EtOH 83. Coags normal findings. Troponin normal findings at less than 0.012. Chest x-ray revealing a small left pleural effusion. No suspicious focal airspace opacity or pneumothorax seen bilaterally. The cardiac silhouette size is within normal limits. The osseous structures are intact. EKG revealing sinus tachycardia 119 bpm with no T-wave abnormalities and no ST elevation or depression noted. 07/09/20: Patient was seen and fully evaluated at the bedside. Patient's generalized appearance significantly improved since yesterday, patient was very diaphoretic and moderately tremulous upon admission and he is now sitting up in bed awake and alert to person place time and situation only mild tenderness remaining and no diaphoresis. Patient has received a total of 6 mg Ativan since admission. Patient reports he continues to mild chest pain to left anterior chest reports significantly improved since yesterday. Patient denies having any headache, lightheadedness, dizziness, diaphoresis, chills, changes in his vision or hearing, palpitations, shortness of breath, abdominal pain, nausea, vomiting, or having any numbness/tingling/weakness in extremities. CBC unremarkable this morning with improvement of leukocytosis with WBC count decreasing from previous 12.5 down to 6.6. BMP reveals hyperkalemia resolved from previous 5.2 now 3.6. Patient did have elevation in total bili 1.6 as well as elevated AST of 81, liver profile otherwise unremarkable. Troponins continued to be negative 4. Echocardiogram was ordered based upon patient's continued reports of chest pain and history of IVDA, echocardiogram revealed an EF of 60-65% with moderate concentric left ventricular hypertrophy, a trileaflet aortic valve, and trace tricuspid regurgitation with trace to mild pulmonic regurgitation. No pericardial effusion. Cardiology was consulted due to patient's persistent chest pain and findings of LVH. CIWA protocol to remain in place with symptom triggered medication management with Ativan. Seizure/aspiration/fall precautions remain in place. Plan for discharge to [facility] in 1-2 days pending detox process. 07/10/20: Patient was seen and fully evaluated at the bedside. Patient somewhat anxious and agitated regarding length of stay and length of detox process. Patient encouraged that his discharge will occur once he is Ativan free for 24 hours and he can then be transferred to [facility] as previously discussed. Patient in agreement with plan of care. He received a total of 8 mg of Ativan over the past 24 hours. Currently he reports feeling much better stating his "shakiness" has resided. He denies having any headache, lightheadedness, dizziness, changes in vision or hearing, any further chest pain or palpitations, shortness of breath, abdominal pain, nausea, vomiting, or any numbness/tingling/weakness. Patient denies having any visual/auditory/tactile hallucinations. Vital signs have remained stable. Patient no longer tremulous. We will continue with [facility] protocol with symptom triggered medication management with Ativan. Seizure precautions, fall precautions, and aspiration precautions to remain in place. Plan remains to discharge patient to [facility] in 1- 2 days pending detox process. Objective - Vital Signs Vital signs: Vital Signs Temp 98.7 F 07/10/20 02:20 Pulse 86 07/10/20 02:20 Resp 17 07/10/20 02:20 BP 149/91 07/10/20 02:20 Pulse Ox 97 07/10/20 02:20 Intake & Output 07/09/20 07/10/20 07/10/20 18:59 06:59 18:59 Intake Total 340 Balance 340 Weight 87.4 kg Intake: Oral 340 Other: Voiding Method Toilet Toilet Urinal # Voids 4 2 # Bowel Movements 2 - Exam Physical examination: General: Patient awake and alert and oriented 4. Derm: skin warm and dry normal coloration for ethnicity. Head: atraumatic, normocephalic, symmetric Eyes: EOMI, no lid lag, anicteric sclera Mouth: no lip lesion, mucus membranes moist, teeth with poor dentition. Cardiovascular: S1S2 normal, normal rate and regular rhythm, no murmur, positive posterior tibial pulse bilaterally, no lower extremity edema. Lungs: CTA bilateral, no rhonchi, no rales, no wheezing, and no accessory muscle use. Abdominal: soft, nontender to palpation, no guarding, no appreciable organomegally Ext: no gross muscle atrophy, no edema, no contractures Neuro: CN II-XII grossly intact, no focal neuro deficits, tremors present. Psych: Alert, oriented, and appropriate to situation. - Labs CBC & Chem 7: 07/10/20 14:51 07/10/20 06:26 Labs: Abnormal Lab Results - Last 24 Hours (Table) 07/10/20 Range/Units 06:26 Plt Count 77 L (150-450) k/uL Assessment and Plan Plan: Plan of care: Acute alcohol withdrawal with delirium tremens: -Patient with an 8 month history of daily EtOH use/abuse reportedly progressively increasing increasing amount of alcohol daily and states that over the last 4-5 weeks he has been drinking at least one fifth of liquor daily. Patient reports that his last drink was yesterday afternoon. -EtOH 83 upon arrival on 07/08/20 -CIWA protocol in place with symptom triggered medication management with Ativan . Pt received 8 mg over the past 24 hours. -Seizure precautions, fall precautions, and aspiration precautions to remain in place. -Thiamine supplements daily -Ativan 1-2 mg IVP as needed for seizure activity. Atypical Chest pain with anxiety, resolved -Troponins negative 4. -Echocardiogram revealed an EF of 60-65% with moderate concentric left ve ntricular hypertrophy, a trileaflet aortic valve, and trace tricuspid regurgitation with trace to mild pulmonic regurgitation. No pericardial effusion. -EKG revealing sinus tachycardia at 119 bpm with no T-wave abnormalities and no ST elevation or depression noted. -Patient was seen, evaluated, and cleared by cardiology. Chest pain atypical and likely resulting from anxiety/withdrawal process and not cardiac etiology. Thrombocytopenia: -Thrombocytopenia as evidenced by an initial platelet count of 109 with repeat platelet count of 77. -Thrombocytopenia likely secondary to direct toxic effect of alcohol vs chronic and excessive EtOH use/abuse vs folate deficiency vs Spleenomegally (which was not evident on physical exam) -We will continue to monitor closely with repeat a.m. labs. -Folate was within normal limits at 8.3. Hyperkalemia, resolved. -Hyperkalemia with potassium of 5.2 upon arrival, now 3.7. -EKG revealing sinus tachycardia at 119 bpm with no T-wave abnormalities and no ST elevation or depression noted. -Telemetry monitoring. -Continued close monitoring with repeat a.m. labs. CODE STATUS: Full code DVT prophylaxis: SCDs Discussed with: Patient Anticipated discharge: 1-[address]: [facility] A total of 35 minutes was spent on the care of this complex patient more than 50% of the time was spent in counseling and care coordination. <Jazmín Erwin - Last Filed: 07/10/20 15:54> Subjective Patient seen and examined independently. Patient was also seen by Ac Fan NP and case was discussed. I am in agreement with subjective, physical exam, assessment and plan as written above and amended below. General: [non toxic], [no distress], [appears at stated age] Derm: [warm], [dry] Head: [atraumatic], [normocephalic], [symmetric] Eyes: [EOMI], [no lid lag], [anicteric sclera] Mouth: [no lip lesion], [mucus membranes moist] Cardiovascular: [S1S2 reg], [no murmur], [positive posterior tibial pulse bi lateral], Lungs: [CTA bilateral], [no rhonchi, no rales] , [no accessory muscle use] Abdominal: [soft], [ nontender to palpation], [no guarding], [no appreciable organomegaly] Ext: [no gross muscle atrophy], [no edema], [no contractures] Neuro: [ CN II-XI grossly intact], [no focal neuro deficits] Psych: [Alert], [oriented], [appropriate affect] Objective - Vital Signs Vital signs: Vital Signs Temp 98.7 F 07/10/20 02:20 Pulse 86 07/10/20 02:20 Resp 17 07/10/20 02:20 BP 149/91 07/10/20 02:20 Pulse Ox 97 07/10/20 02:20 Intake & Output 07/09/20 07/10/20 07/10/20 18:59 06:59 18:59 Intake Total 340 Balance 340 Weight 87.4 kg Intake: Oral 340 Other: Voiding Method Toilet Toilet Urinal # Voids 4 2 2 # Bowel Movements 2 - Labs CBC & Chem 7: 07/10/20 14:51 07/10/20 06:26 Labs: Abnormal Lab Results - Last 24 Hours (Table) 07/10/20 07/10/20 Range/Units 06:26 14:51 Plt Count 77 L 79 L (150-450) k/uL
[2020-07-10 15:25] LABS: Basophils % (A) 0 %; Eosinophils # (A) 0.1 k/uL (0-0.7); Eosinophils % (A) 2 %; HCT 45.2 % (39.0-53.0); HGB 15.1 gm/dL (13.0-17.5); Lymphocytes # (A) 1.6 k/uL (1.0-4.8); Lymphocytes % (A) 25 %; MCH 32.7 pg (25.0-35.0); MCHC 33.4 g/dL (31.0-37.0); MCV 98.1 fL (80.0-100.0); Monocytes # (A) 0.4 k/uL (0-1.0); Monocytes % (A) 6 %; Neutrophils # (A) 4.2 k/uL (1.3-7.7); Neutrophils % (A) 65 %; RBC 4.61 m/uL (4.30-5.90); RDW 14.3 % (11.5-15.5); WBC 6.4 k/uL (3.8-10.6)
[2020-07-10 15:26] LABS: Platelet Count 79 k/uL (150-450)
[2020-07-10] MEDS: IBUPROFEN 400 MG TAB PO PRN (23:47)
[2020-07-11] MEDS: LORazepam 2 MG/ML INJ IV PRN ×3 (03:40→10:07)
[2020-07-11] MEDS: SODIUM CHLORIDE 0.9% 1,000 ML IV SCH ×2 (07:16→11:53)
[2020-07-11] MEDS: THIAMINE 100 MG TAB PO SCH ×2 (07:16→16:59)
[2020-07-11] MEDS: NICOTINE 14MG/24HR PATCH TRANSDERM SCH (07:16)
--- NOTE | 2020-07-11 13:03 | P.DS ---
Providers Date of admission: 07/08/20 14:54 Expected date of discharge: 07/11/20 Attending physician: Jazmín Erwin MD Consults: 07/09/20 12:34 Consult Physician Routine Consulting Provider: Mindy Brink Consult Reason/Comments: Pt with continued CP, trop neg x4, ekg NST, echo showing LVH Do you want consulting provider notified?: Yes Primary care physician: Stated None Hospital Course: Discharge Diagnosis: Acute alcohol withdrawal Atypical chest pain likely due to anxiety: Resolved Thrombocytopenia likely due to alcohol abuse: Platelets are stable Hyperkalemia: Resolved Hospital Course: Patient is a 29-year-old male with a past medical history of polysubstance abuse and a alcohol abuse who presented to the ED with alcohol withdrawal and left sided chest pain. Patient initially went to [facility] rehab however they sent him to the ED for medical clearance. Patient was admitted for alcohol w ithdrawal. Patient continued to complain of chest pain so cardiology was consulted. His echocardiogram was unremarkable. Troponin were negative 4. Per cardiology no further workup required. Patient at the time of discharge was calm and was no longer in withdrawal. He only required 2 doses of 1 mg IV Ativan in the past 24 hours. Patient is stable for discharge to [facility]. He will complete his detox over there. Patient is excited about discharge. 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 Plan - Discharge Summary Discharge Rx Participant: No New Discharge Prescriptions: No Action No Known Home Medications Discharge Medication List No Known Home Medications 07/08/20 [History] Follow up Appointment(s)/Referral(s): None,Stated [Primary Care Provider] - 1-2 days Activity/Diet/Wound Care/Special Instructions: Call [facility] who will crop picker on discharge: #[phone] Discharge Disposition: OTHER INSTITUTION NOT DEFINED
[2020-07-11] MEDS: hydrOXYzine pamoate 25 MG CAP PO PRN ×2 (15:27→21:12)
--- NOTE | 2020-07-11 16:11 | P.PN ---
Subjective Progress Note Date: 07/11/20 Patient required only 2 mg of IV Ativan in the past 24 hours. ID and patient stable for discharge to [facility] to complete his detox since he was not requiring significant doses of Ativan. However [facility] is not accepting any new admissions over the weekend. So discharge was held. Patient otherwise denies any complaints. He denies any withdrawal symptoms currently. 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 Otherwise patient will be discharged to [facility] on Monday Atypical Chest pain with anxiety, resolved -Troponins negative 4. -Echocardiogram revealed an EF of 60-65% with moderate concentric left ventricular hypertrophy, a trileaflet aortic valve, and trace tricuspid regurgitation with trace to mild pulmonic regurgitation. No pericardial effusion. -EKG revealing sinus tachycardia at 119 bpm with no T-wave abnormalities and no ST elevation or depression noted. -Patient was seen, evaluated, and cleared by cardiology. Chest pain atypical and likely resulting from anxiety/withdrawal process and not cardiac etiology. Thrombocytopenia: -Likely due to alcohol abuse -Platelets are stable Hyperkalemia, resolved. -Resolved CODE STATUS: Full code DVT prophylaxis: SCDs Discussed with: Patient Anticipated discharge: 1-[address]: [facility]
[2020-07-11] MEDS: IBUPROFEN 400 MG TAB PO PRN (17:58)
[2020-07-12] MEDS: hydrOXYzine pamoate 25 MG CAP PO PRN ×2 (03:14→10:19)
[2020-07-12] MEDS: THIAMINE 100 MG TAB PO SCH (07:27)
[2020-07-12] MEDS: NICOTINE 14MG/24HR PATCH TRANSDERM SCH (07:27)
[2020-07-12 08:13] VITALS: BP 143/87; PULSE 101; RESP 16; TEMP 98.4
[2020-07-12] MEDS: IBUPROFEN 400 MG TAB PO PRN (10:19)
--- NOTE | 2020-07-12 10:28 | P.DS ---
Providers Date of admission: 07/08/20 14:54 Attending physician: Jazmín Erwin MD Consults: 07/09/20 12:34 Consult Physician Routine Consulting Provider: Mindy Brink Consult Reason/Comments: Pt with continued CP, trop neg x4, ekg NST, echo showing LVH Do you want consulting provider notified?: Yes Primary care physician: Stated None Hospital Course: Discharge Diagnosis: Acute alcohol withdrawal Atypical chest pain likely due to anxiety: Resolved Thrombocytopenia likely due to alcohol abuse: Platelets are stable Hyperkalemia: Resolved Hospital Course: Patient is a 29-year-old male with a past medical history of polysubstance abuse and a alcohol abuse who presented to the ED with alcohol withdrawal and left sided chest pain. Patient initially went to [facility] rehab however they sent him to the ED for medical clearance. Patient was admitted for alcohol withdrawal. Patient continued to complain of chest pain so cardiology was consulted. His echocardiogram was unremarkable. Troponin were negative 4. Per cardiology no further workup required. Patient at the time of discharge was calm and was no longer in withdrawal. Patient has not required any Ativan in the past 24 hours. He is deemed stable for transfer to [facility]. 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 Patient Condition at Discharge: Good Plan - Discharge Summary Discharge Rx Participant: No New Discharge Prescriptions: No Action No Known Home Medications Discharge Medication List No Known Home Medications 07/08/20 [History] Follow up Appointment(s)/Referral(s): None,Stated [Primary Care Provider] - 1-2 days Patient Instructions/Handouts: Abuse of Alcohol (DC) Activity/Diet/Wound Care/Special Instructions: Call [facility] who will roller picker on discharge: #[phone] Discharge Disposition: OTHER INSTITUTION NOT DEFINED
== END 2020-07-12 10:42 | disposition still patient (30) | DRG 897 ==
LOC: EC 13:49 → 4SSUR 14:54 → 3SCARD 16:11 → 4SSUR 07-09 18:47
PROVIDERS: ADMIT Internal Medicine; ATTEND Internal Medicine
PROC: 05HF33Z Insertion of Infusion Device into Left Cephalic Vein, Percutaneous Approach (ICD-10-PCS; principal; 2020-07-09 08:20)
DX: F10.231 Alcohol dependence with withdrawal delirium (principal); E87.5 Hyperkalemia; D72.829 Elevated white blood cell count, unspecified; D69.59 Other secondary thrombocytopenia; F17.200 Nicotine dependence, unspecified, uncomplicated; F41.9 Anxiety disorder, unspecified; I51.7 Cardiomegaly; F19.90 Other psychoactive substance use, unspecified, uncomplicated; R07.89 Other chest pain; Y90.4 Blood alcohol level of 80-99 mg/100 ml; Z82.49 Family history of ischemic heart disease and other diseases of the circulatory system
CPT/HCPCS: 36410; 36415; 71045; 76937; 80048; 80053; 80320; 82746; 83690; 83735; 84484; 85025; 85610; 85730; 93005; 93306; 96361; 96372; 96374; 96375; 96376; 99285

== ENCOUNTER → 2020-07-17 | Outpatient (CLI) | payer OTHER ==
[2020-07-17 19:25] LABS: African American GFR (CKD) 133.3 (60.0-200.0); Albumin 4.9 g/dL (3.80-4.90); Albumin/Globulin Ratio 1.81 (1.60-3.17); Anion Gap 8.7 mmol/L (4.00-12.00); BUN/Creat Ratio 18.89 Ratio (12.00-20.00); Calcium 10.1 mg/dL (8.7-10.3); Carbon Dioxide 25.3 mmol/L (21.6-31.8); Globulin 2.7 g/dL (1.6-3.3); Potassium 4.8 mmol/L (3.5-5.5); Total Bilirubin 0.3 mg/dL (0.2-1.2); Total Protein 7.6 g/dL (6.2-8.2)
== END | disposition home or self-care (01) ==
LOC: LABWHC1 13:24
PROVIDERS: ATTEND Family Medicine
DX: F10.20 Alcohol dependence, uncomplicated (principal)
CPT/HCPCS: 36415; 80053